=== PATIENT | male | born 1960 | race Caucasian/White ===

== ENCOUNTER → 2017-05-16 | Outpatient (CLI) | payer BC ==
[2017-05-16 12:42] LABS: BASO % 1.2 %; BASO ABS # 0.08 K/uL (0-0.2); EOS % 5.4 %; EOS ABS # 0.36 K/uL (0-0.5); HEMATOCRIT 44.5 % (42-52); IG# 0.01 K/uL (0.00-0.02); LYMPH % 27.1 %; MEAN CORPUSCULAR HEMOGLOBIN 32.7 pg (25-34); MONO % 9.2 %; MONO ABS # 0.61 K/uL (0.11-0.59); NEUT % 56.9 %; NEUT ABS # 3.78 K/uL (1.4-6.5); PLATELET COUNT 197 K/uL (130-400); RED CELL DISTRIBUTION WIDTH CV 13.1 % (11.5-14.5); RED CELL DISTRIBUTION WIDTH SD 42.8 fL (36.4-46.3); WHITE BLOOD COUNT 6.64 K/uL (4.8-10.8)
[2017-05-16 14:42] LABS: ALBUMIN 3.7 gm/dl (3.4-5.0); ALT/SGPT 37 U/L (12-78); BLOOD UREA NITROGEN 14 mg/dl (7-18); CALCIUM 8.8 mg/dl (8.5-10.1); CARBON DIOXIDE 23 mmol/L (21-32); CHOLESTEROL 157 mg/dl (0-200); CREATININE 1.09 mg/dl (0.60-1.40); GLUCOSE 98 mg/dl (70-99); POTASSIUM 3.9 mmol/L (3.5-5.1); SODIUM 140 mmol/L (136-145)
[2017-05-16 14:45] LABS: ALKALINE PHOSPHATASE 74 U/L (45-117); AST/SGOT 15 U/L (15-37); LDL CHOLESTEROL CALCULATED 90 mg/dl; TOTAL PROTEIN 6.8 gm/dl (6.4-8.2)
== END | disposition home or self-care (01) ==
LOC: C.LABMFLN 07:53
PROVIDERS: ATTEND Family Medicine
DX: I10 Essential (primary) hypertension (principal); Z88.9 Allergy status to unspecified drugs, medicaments and biological substances